=== PATIENT | female | born 1970 | race Caucasian/White ===

== ENCOUNTER 2016-10-04 12:36 | Day surgery (SDC) | payer OTHER ==
[~2016-10-04] VITALS: Ht 162.6 cm; Wt 107.0 kg
[~2016-10-04 12:36] MED LIST: ALBU8.5H2 INHALATION; AMLO10TA3 PO; ASCO250T7 PO; AZEL137S11 NS; BECL8.7A6 INHALATION; BUSP10TA2 PO; CHOL500011 PO; DIAM PO; EPIN0.3P2 IJ; FERR-83 PO; FEXO180T85 PO; FLUT15.88 NS; GABA-504 PO; LEVO500T79 PO; LOSA100T29 PO; Lactated Ringer's 1,000 ML IV ONE; MOME13HF2 IH; MONT10TA23 PO; MUPI15CR TOPICAL; OMEP40CA36 PO; OXYB5TAB10 PO; TIZA4CAP8 PO; VENL150T3 PO; VENL75TA87 PO
[2016-10-04] MEDS ORDERED: Propofol 10,000 mCg/mL 20 mL Inj ONE (12:37)
[2016-10-04] MEDS ORDERED: Lidocaine PF 1% 30 mL Inj ONE (12:37)
[2016-10-04 12:57] VITALS: BP 136/93; PULSE 82; RESP 16; O2SAT 97
[2016-10-04] MEDS ORDERED: Lactated Ringer's 1,000 ML IV SCH (13:19)
[2016-10-04] MEDS ORDERED: MetoCLOpramide 5 mg/mL 2 mL Inj IVPUSH PRN (13:20)
[2016-10-04] MEDS ORDERED: Ondansetron 2 mg/mL 2 mL Inj IVPUSH PRN (13:20)
--- NOTE | 2016-10-04 13:24 | PCM.HPANE ---
Patient Data Date of Service: October 04, 2016 Surgeon Admitting Provider: Attending Provider:Anat Prado MD Primary Care Physician:Caas Lawson MD Other Provider:Sandi Moore Anesthesia Reason for Visit Loose Stools, Dysphagia Ht/WT & BMI Height (Feet): 5 Height (Inches): 4 Weight (Kilograms): 107 Body Mass Index 40.00 Allergies Coded Allergies: Penicillins (Verified Allergy, Unknown, rash, 10/03/16) amoxicillin (Verified Allergy, Unknown, 10/03/16) aspirin (Verified Allergy, Unknown, trouble breathing, 10/03/16) clavulanic acid (Verified Allergy, Unknown, 10/03/16) divalproex sodium (Verified Allergy, Unknown, asthma attack, 10/03/16) gluten (Verified Allergy, Unknown, 10/03/16) oxycodone (Verified Allergy, Unknown, 10/03/16) pork derived (porcine) (Verified Allergy, Unknown, bladder infection, 10/03) shellfish derived (Verified Allergy, Unknown, unknown, 10/03/16) yellow dye (Verified Allergy, Unknown, 10/03/16) Past Anesthesia History Anesthesia History: Denies:: Abnormal Airway, Anesthesia Reactions, Difficult Intubation, Fam Anesthesia Reaction, Fam Malignant Hypertherm, Malignant Hyperthermia Diabetes History Hx Diabetes?: No MRSA MRSA: No Medications Hypertension Medication: Yes Home Meds Incl Beta Char: No Active Scripts Acetazolamide ER (Diamox Sequels)500 Mg Ailmn184 Mg PO BID #60 CAPSULE Prov:Kerwin Burkett MD 12/23/15 Reported Medications Cholecalciferol (Vitamin D3) (Vitamin D3)5,000 Unit Tablet5,000 Unit PO 10/03/16 Venlafaxine ER 150 Mg Tab.er.62642 Mg PO DAILY Ref 0 10/03/16 Tizanidine 4 Mg Capsule4 Mg PO 10/03/16 Beclomethasone Dipropionate (Qvar)8.7 Gm Aer.w.adapUnknown Dose INHALATION BID # 8.7 GM 10/03/16 Oxybutynin Chloride 5 Mg Tablet5 Mg PO TID Ref 0 10/03/16 Omeprazole 40 Mg Capsule.dr40 Mg PO BID Ref 0 10/03/16 Montelukast 10 Mg Gjrnin41 Mg PO HS Ref 0 10/03/16 Losartan Potassium 100 Mg Ddlyln843 Mg PO 10/03/16 Gabapentin 400 Mg Tkuxsjv243 Mg PO DAILY Ref 0 10/03/16 Fluticasone Propionate 50 Mcg/Actuation [place].susp15.8 Ml NS 10/03/16 Ascorbic Acid (Vitamin C)250 Mg Tab.jkjv661 Mg PO DAILY #30 TABLET Ref 0 10/03/16 Ferrous Sulfate 325 Mg Rugoux512 Mg PO BID 30 Days Ref 0 10/03/16 Epinephrine (Epipen 2-Scot)0.3 Mg/0.3 Ml Auto.injct0.3 Mg IJ 10/03/16 Mometasone/Formoterol (Dulera 100 Mcg/5 Mcg Inhaler)13 Gm Hfa.aer.ad13 Gm IH 10/03/16 Buspirone 10 Mg Glfscp39 Mg PO BID Ref 0 10/03/16 Mupirocin Cream (Bactroban Cream)15 Gm Cream..g.Unknown Dose TOPICAL TID #1 TUBE Ref 0 10/03/16 Azelastine HCl 137 Mcg/0.137 Ml [place].hyia114 Mcg NS 10/03/16 Amlodipine 10 Mg Zgqdzj56 Mg PO DAILY Ref 0 10/03/16 Albuterol HFA (Proair HFA)8.5 Gm Hfa.aer.ad2 Puffs INHALATION Q4H #1 INHALER 10/03/16 Discontinued Reported Medications Venlafaxine ER 75 Mg Tab.er.99550 Mg PO DAILY Ref 0 10/03/16 Levofloxacin 500 Mg Trqkli504 Mg PO DAILY 10/03/16 Fexofenadine (Linda Allergy)180 Mg Zlweja375 Mg PO DAILY Ref 0 10/03/16 History History of ENT Problems?: Yes HEENT History: Positive for:: Dysphagia Denies:: Abnormal Airway Difficult Intubation Hearing Problem Denture Type: None Teeth Condition: Within Normal Limits Hx of Heart Problems?: Yes Cardiovascular History: Positive for:: Hypertension Valvular Heart Disease Denies:: AICD Atrial Fibrillation Chest Pain Congestive Heart Failure Pacemaker Other Cardiac History: born with bicuspid aortic valve Hx of Respiratory Problem?: Yes Respiratory History: Positive for:: Asthma Pneumonia Denies:: COPD Cough Hemoptysis Tuberculosis Hx Neurologic Problems?: Yes (chronic pain) Neurological History: Denies:: CVA Hx of GI Problems?: Yes Hx of Problems?: No Female Hx: Denies:: Currently Hx Musculoskeletal Problems?: No Musculoskeletal History: Denies:: Fibromyalgia Joint Replacement Psycho Social History: Positive for:: Anxiety Hx Depression Hx Surgeries?: Yes (abdominal repair from accident, hysterectomy,elbow,bladder , right adrenal ) Hx Any Other Health Problems?: Yes Hx Diabetes: No Hx Alcohol Use: NoHx Substance Use: No Smoking Status: Unknown if Ever Smoker Have You Smoked inLast 12 mo: No Stop/Bang Treated for Sleep Apnea?: Yes Do You Have a CPAP Machine?: Yes KIARA Risk Assessment: High Risk, =/>3 Yes Risk Assessment Category Category 1A: Patient has history of documented sleep apnea, and HAS NOT received any narcotic, sedative or anesthesia administration during this stay. Category 1B: Patient has history of documented sleep apnea, and HAS received any narcotic , sedative or anesthesia administration during this stay Category 2: Patient has SUSPECTED Obstructive Sleep Apnea, and HAS received any narcotic , sedative or anesthesia administration during this stay. Category 3: Patient has SUSPECTED Obstructive Sleep Apnea and HAS NOT received narcotic, sedative or anesthesia administration during this stay. Category 4: Outpatient in Procedural Areas with known sleep apnea or who screen positive for High Risk via the STOP/BANG questionnaire. Exam Exam Vital Signs Vital Signs Date Time Temp Pulse Resp B/P Pulse Ox O2 Delivery O2 Flow Rate FiO2 10/04/16 12:57 36.5 82 16 136/93 97 Room Air General Appearance: Alert, Oriented X3, Cooperative HEENT/AIRWAY: MP 2, Neck Movement (Full), Mouth Opening (Wide) Lungs: Clear to Auscultation, Normal Air Movement Heart: Regular Rate/Rhythm, Normal S1, Normal S2 Plan Impression Patient chart reviewed, patient interviewed and anesthestic plan with risks, benefits, and alternatives discussed, and informed consent obtained. NPO per Anesth. Guidelines: Yes ASA Physical Status: ASA3 Severe Disease Anesthetic Plan: MAC Bene/Risks/Altern/Consents: Yes HP Complete Prior to Induction: Yes Arnoldo Ellis MD October 04, 2016 13:24
[2016-10-04 14:03] VITALS: BP 104/80; PULSE 88; RESP 16; O2SAT 95
[2016-10-04 14:13] VITALS: BP 104/80; PULSE 67; RESP 16; O2SAT 96
[2016-10-04 14:23] VITALS: BP 132/89; PULSE 73; RESP 16; O2SAT 95
--- NOTE | 2016-10-04 14:29 | PCM.ANEP1 ---
Post Anesthesia PACU Phase 1 Assessment Date of Service: October 04, 2016 Vital Signs Vital Signs Date Time Temp Pulse Resp B/P Pulse Ox O2 Delivery O2 Flow Rate FiO2 10/04/16 14:13 67 16 104/80 96 Room Air 10/04/16 14:03 36.1 88 16 104/80 95 Room Air 10/04/16 12:57 36.5 82 16 136/93 97 Room Air Anesthetic Administered: MAC Level of Alertness: Awake, talking ALEXIS's with Equal Strength: Yes Pain: No Nausea or Vomiting: No CV Function & Hydration Stable: Yes Airway Device: Lungs: Clear to Auscultation, Normal Air Movement PACU Phase 2 Assessment Complications: No Follow up Care: No Patient Instructions Provided: N/A Arnoldo Ellis MD October 04, 2016 14:28
--- NOTE | 2016-10-04 14:38 | ENDO ---
[address] [address] ENDOSCOPY PROCEDURE PATIENT: TRUNG CROW : 1970 MR#: [id number] ADMIT: 10/04/2016 JOB ID: [id number] DATE OF SERVICE: 10/04/2016 PROCEDURE: Esophagogastroduodenoscopy. INDICATIONS: Dysphagia. ANESTHESIA: Please see Dr. Arnoldo Ellis's anesthesia report for details regarding ASA classification, Mallampati Score, and medications. INSTRUMENT USED: [id number]. PROCEDURE DETAILS: After informed consent was obtained, the patient was brought into the GI suite, where she was placed on oxygen via nasal cannula and monitored with continuous pulse oximeter, telemetry, and blood pressure monitoring. A time-out was performed. Then, she was placed in a left lateral decubitus position and medications were administered for sedation. A bite block was placed. The standard esophagogastroduodenoscopy scope was inserted through the bite block and advanced under direct visualization to second portion of duodenum without difficulty. FINDINGS: 1. Normal-appearing duodenal bulb, first and second portion. Multiple random biopsies were obtained. 2. Normal-appearing pylorus. In the antrum and body of the stomach, there was scattered erythema suggestive of gastritis. Multiple random biopsies were obtained. 3. In the gastric body, there was an approximately 5 mm sessile polyp that was that was biopsied. Appearance of the polyp was consistent with fundic gland polyp. 4. In the proximal gastric body, there was a focal area of erythema that was biopsied. 5. Retroflexed views in the gastric body revealed a normal-appearing cardia and fundus. 6. The GE junction was regular at 39 cm. 7. Normal-appearing esophagus. 8. Multiple random biopsies were obtained in the mid esophagus. IMPRESSION: 1. Gastritis. 2. Gastric body polyp. RECOMMENDATIONS: 1. Await biopsy results. 2. Continue PPI daily. 3. Proceed to colonoscopy.
--- NOTE | 2016-10-04 14:41 | ENDO ---
[address] [address] ENDOSCOPY PROCEDURE PATIENT: TRUNG CROW : 1970 MR#: [id number] ADMIT: 10/04/2016 JOB ID: [id number] DATE OF SERVICE: 10/04/2016 PROCEDURE: Colonoscopy. INDICATIONS: Loose stools. ANESTHESIA: Please see Dr. Arnoldo Ellis's anesthesia report for details regarding ASA classification, Mallampati Score, and medications. INSTRUMENT USED: [id number]-H180AL. PREP QUALITY: Fair. PROCEDURE DETAILS: After completion of the EGD exam, the patient was turned and the digital rectum exam was performed which was unremarkable. The colonoscope was then inserted into the rectum and advanced under direct visualization to the cecum, which was identified by the presence of the ileocecal valve and appendiceal orifice. Once the cecum was reached, I attempted to intubate the terminal ileum, however was unsuccessful after multiple attempts. Colonoscope was then withdrawn back into the rectum as the mucosa and lumen were examined. In the rectum, retroflexion was performed. Following retroflexion, remaining air in the rectum was suctioned, and procedure was completed. FINDINGS: 1. Normal-appearing colon mucosa from rectum to cecum. Multiple random biopsies were obtained throughout the entire colon. 2. In the ascending colon, there was a diminutive polyp that was removed with cold biopsy forceps. IMPRESSION: 1. Ascending colon polyp. 2. Otherwise normal exam from rectum to cecum. RECOMMENDATIONS: 1. Await biopsy results. 2. Follow up in GI clinic. COMPLICATIONS: None. ESTIMATED BLOOD LOSS: Less than 10 mL.
--- NOTE | 2016-10-10 15:43 | PATH ---
SURGICAL PATHOLOGY Attending Physician:Matt Jc CASE STATUS: Signed Out PATIENT NAME: TRUNG CROW PID: [id number] : 1970 DATE COLLECTED:10/04/2016 00:00 SPECIMEN: 1: Duodenum, Biopsy 2: Gastric, Biopsy 3: Stomach, Polyp, Biopsy 4: Gastric, Biopsy 5: Esophagus, Biopsy 6: Colon, Biopsy 7: Colon, Biopsy CLINICAL HISTORY: 1. DUODENAL BX 2. RANDOM GASTRIC BX 3. GASTRIC BODY POLYP X1 4. PROXIMAL GASTRIC BODY BXS 5. MID ESOPHAGEAL BX 6. RANDOM COLON BX 7. ASCENDING COLON POLYP X1 FINAL DIAGNOSIS: 1. Duodenal Biopsy: Duodenal mucosa with no diagnostic abnormality. Negative for active inflammation, features of sprue, dysplasia, and malignancy. 2. Gastric Random Biopsies: Portions of gastric antral and body-type mucosa with focal features of reactive gastropathy. Negative for intestinal metaplasia, dysplasia, and malignancy. Negative for H. pylori organisms by immunohistochemistry studies. The control tissue stained appropriately. 3. Gastric Body Polyp, Biopsy: Fundic gland polyp. Negative for dysplasia and malignancy. 4. Proximal Gastric Body Biopsy: Portions of gastric body-type mucosa with no diagnostic abnormality. Negative for intestinal metaplasia, dysplasia, and malignancy. Negative for H. pylori organisms by immunohistochemistry studies; the control tissue stained appropriately. 5. Mid Esophageal Biopsy: Squamous mucosa with no diagnostic abnormality. Intraepithelial eosinophils are not increased. Negative for dysplasia and malignancy. 6. Random Colon Biopsies: Superficial portions of colorectal mucosa with scattered lymphoid aggregates and no diagnostic abnormality. Possible melanosis coli is present. Negative for active inflammation, granulomas, dysplasia, and malignancy. 7. Ascending Colon Polyp, Biopsy: Superficial portions of colorectal mucosa x 2, one with with occasional lymphoid aggregates, and otherwise no diagnostic abnormality. Additional levels through the block are non-contributory. ICD10: K31.7 H. pylori: This test was developed and its performance characteristics determined by [employer]. It has not been cleared or approved by the U.S. Food and Drug Administration. The FDA has determined that such clearance or approval is not necessary. This test is used for clinical purposes. It should not be regarded as investigational or for research. GROSS DESCRIPTION: Received are seven formalin-filled containers, each labeled with the patient' s name. 1. Received in formalin, labeled with the patient' s name and "duodenal BX", are four fragments of malik, soft tissue ranging in size from 0.1 x 0.1 x 0.1 cm to 0.2 x 0.1 x 0.1 cm. All fragments are totally submitted in cassette 1A. 2. Received in formalin, labeled with the patient' s name and "gastric random biopsies", are two fragments of malik, soft tissue ranging in size from 0.1 x 0.1 x 0.1 cm to 0.2 x 0.1 x 0.1 cm. All fragments are totally submitted in cassette 2A. 3. Received in formalin, labeled with the patient' s name and "gastric body polyp x1", is one fragment of malik, soft tissue measuring 0.2 x 0.1 x 0.1 cm. The fragment is totally submitted in cassette 3A. 4. Received in formalin, labeled with the patient' s name and "proximal gastric body biopsy", is one fragment of malik, soft tissue measuring 0.3 x 0.2 x 0.1 cm. The fragment is totally submitted in cassette 4A. 5. Received in formalin, labeled with the patient' s name and "mid esophagus BX", are three fragments of malik, soft tissue ranging in size from 0.1 x 0.1 x 0.1 cm to 0.2 x 0.1 x 0.1 cm. All fragments are totally submitted in cassette 5A. 6. Received in formalin, labeled with the patient' s name and "random colon BX", are multiple fragments of malik, soft tissue ranging in size from 0.1 x 0.1 x 0.1 cm to 0.2 x 0.1 x 0.1 cm. All fragments are totally submitted in cassette 6A. 7. Received in formalin, labeled with the patient' s name and "ascending colon polyp", are two fragments of malik, soft tissue ranging in size from 0.1 x 0.1 x 0.1 cm to 0.2 x 0.1 x 0.1 cm. All fragments are totally submitted in cassette 7A. ([id number]) ICD-9 CODES: CPT CODES: 1: 82254 2: 64379, 05603 3: 32007 4: 86986, 26543 5: 59915 6: 98167 7: 35584 Electronically Signed Out Connie Saldivar MD [facility] [address], [place] [address] Technical component performed at [facility], [address], [place], [address]
== END 2016-10-04 23:59 | disposition home or self-care (01) ==
LOC: END 12:36
PROVIDERS: ATTEND Internal Medicine Gastroenterology
DX: K31.7 Polyp of stomach and duodenum (principal); K29.70 Gastritis, unspecified, without bleeding; R13.10 Dysphagia, unspecified; R19.5 Other fecal abnormalities; K21.9 Gastro-esophageal reflux disease without esophagitis; D64.89 Other specified anemias; I10 Essential (primary) hypertension; I51.9 Heart disease, unspecified; J45.909 Unspecified asthma, uncomplicated; G47.33 Obstructive sleep apnea (adult) (pediatric); M54.5 Low back pain; G62.9 Polyneuropathy, unspecified; E89.6 Postprocedural adrenocortical (-medullary) hypofunction; F41.8 Other specified anxiety disorders; E66.01 Morbid (severe) obesity due to excess calories; F43.10 Post-traumatic stress disorder, unspecified; Z90.710 Acquired absence of both cervix and uterus; Z68.39 Body mass index [BMI] 39.0-39.9, adult
CPT/HCPCS: 43239; 45380; J7120

== ENCOUNTER → 2017-01-22 | Day surgery (SDC) | payer OTHER ==
[~2017-01-22] MED LIST changes: -FEXO180T85 PO; -LEVO500T79 PO; -Lactated Ringer's 1,000 ML IV ONE; +Lidocaine Topical 2% 30 mL Jelly ONE; -VENL75TA87 PO
== END | disposition home or self-care (01) ==
LOC: END 00:56
PROVIDERS: ATTEND Internal Medicine Gastroenterology
DX: R13.10 Dysphagia, unspecified (principal)